=== PATIENT | male | born 1945 | race Caucasian/White ===

== ENCOUNTER 2018-11-04 09:13 | Emergency (ER) | payer OTHER ==
[2018-11-04 09:23] VITALS: BP 148/79
[2018-11-04] MEDS ORDERED: PROPARACAINE 0.5% OPHTH DROPS 15 ML EACHEYE STA (09:23)
--- NOTE | 2018-11-04 09:23 | ED Physician Documentation ---
PD HPI OPHTHO - Stated complaint Stated Complaint: EYE PX - Chief complaint Chief Complaint: Heent - History obtained from History obtained from: Patient - History of Present Illness Timing - onset: Today, Last night Timing - details: Abrupt onset, Still present Location: Both Quality / character: Burning, Aching Associated symptoms: Redness, Swelling, Tearing, Photophobia. No: Discharge, FB sensation, Decreased vision Contributing factors: Recent URI (some congestion and mild cough). No: Exposed to conjunctivitis, UV light (welding etc), Wears contacts Similar symptoms before: Has not had sx before Recently seen: Not recently seen Review of Systems Constitutional: denies: Fever, Chills Nose: reports: Rhinorrhea / runny nose, Congestion. denies: Sinus pressure / pain Throat: denies: Sore throat Respiratory: reports: Cough (mild) GI: denies: Nausea, Vomiting Neurologic: denies: Headache PD PAST MEDICAL HISTORY - Past Medical History Past Medical History: Yes Cardiovascular: Hypertension Respiratory: None Neuro: None Endocrine/Autoimmune: Type 2 diabetes - Present Medications Home Medications: Ambulatory Orders Medication Instructions Recorded Confirmed Glipizide [Glipizide ER] 5 mg PO 11/04/18 Lisinopril 11/04/18 Simvastatin 11/04/18 11/04/18 Sulfacetm Na/Prednisol AC 2 drops EACHEYE QID #5 ml 11/04/18 [Blephamide Eye Drops] metFORMIN [Glucophage] 11/04/18 - Allergies Allergies/Adverse Reactions: Allergies Allergy/AdvReac Type Severity Reaction Status Date / Time No Known Drug Allergies Allergy Verified 11/04/18 09:19 PD ED PE NORMAL - Vitals Vital signs reviewed: Yes - General General: Alert and oriented X 3, No acute distress, Well developed/nourished - HEENT HEENT: Ears normal, Pharynx benign - Neck Neck: Supple, no meningeal sign, No adenopathy - Cardiac Cardiac: RRR, No murmur - Respiratory Respiratory: Clear bilaterally - Derm Derm: Normal color, Warm and dry, No rash PD ED PE EXPANDED - Eyes Eyes: PERRL, EOMI, Both eyes, Injected conj/sclera, Anterior chambers clear, Normal fundi, Other (light sensitive, improved with Alcaine.). No: EOM palsy, Eyelid swelling, Exudate, Corneal FB, Fluorescein uptake Results - Vitals Vitals: Vital Signs - 24 hr 11/04/18 09:17 Temperature 37.1 C Heart Rate 61 Respiratory 16 Rate Blood Pressure 148/79 H O2 Saturation 99 Oxygen O2 Source Room air PD MEDICAL DECISION MAKING - ED course Complexity details: considered differential (No corneal defect. Has bilateral redness and discomfort. Consider viral or allergic. ), d/w patient Departure - Departure Disposition: 01 Home, Self Care Clinical Impression: Acute conjunctivitis, bilateral Qualifiers: Acute conjunctivitis type: unspecified Qualified Code(s): H10.33 - Unspecified acute conjunctivitis, bilateral Condition: Stable Record reviewed to determine appropriate education?: Yes Instructions: ED Conjunctivitis Nonspecific Prescriptions: Sulfacetm Na/Prednisol AC [Blephamide Eye Drops] 2 drops EACHEYE QID #5 ml Comments: Use the combination anti-inflammatory/antibiotic eyedrops 4 times a day for the next several days until fully better. This should improve over the next couple of days. It may be related to allergies or irritation and will be helped with the anti-inflammatory portion. It might be infectious. Sometimes this is viral and will take several days to clear but will cover with antibiotic in case. You can use the numbing eyedrops periodically if needed for discomfort for the first day or 2. Recheck if not well improved over the next couple of days. Tylenol or ibuprofen if needed as well for pain. Discharge Date/Time: 11/04/18 09:58
== END 2018-11-04 09:58 | disposition home or self-care (01) ==
LOC: ED 09:13
DX: H10.33 Unspecified acute conjunctivitis, bilateral (principal); I10 Essential (primary) hypertension; E11.9 Type 2 diabetes mellitus without complications; Z79.84 Long term (current) use of oral hypoglycemic drugs
CPT/HCPCS: 99283; J3490

== ENCOUNTER 2019-04-20 12:30 | Emergency (ER) | payer OTHER ==
--- NOTE | 2019-04-20 14:06 | XRAY Report ---
Reason: ankle inj Procedure Date: 04/20/2019 Accession Number: [id number] / [id number] Procedure: XR - Ankle 3 View LT CPT Code: FULL RESULT: EXAM: LEFT ANKLE RADIOGRAPHY EXAM DATE: 04/20/2019 01:47 PM. CLINICAL HISTORY: Ankle inj. Pain and swelling after dropping a transmission on his ankle 4 days ago. COMPARISON: None available. TECHNIQUE: 3 views. FINDINGS: Bones: There is a fracture through the distal fibula just above the level of the ankle joint. The distal fragment is displaced laterally approximately 1 mm and posteriorly approximately 2 mm. Joints: Normal. No effusion. No subluxations. The ankle mortise is normally aligned. Soft Tissues: There is soft tissue swelling laterally. IMPRESSION: Mildly displaced fracture of the distal fibula with adjacent soft tissue swelling. RADIA
--- NOTE | 2019-04-20 14:17 | ED Physician Documentation ---
History of Present Illness - Stated complaint Stated Complaint: LT ANKLE INJ - Chief complaint Chief Complaint: Heent - History obtained from History obtained from: Patient - History of Present Illness Timing: Other (5 days ago he was working at home and dropped a transmission on the medial side of his ankle and had persistent lateral ankle pain ever since but he is able to walk and bear weight. No other injuries.) Review of Systems Constitutional: reports: Reviewed and negative Cardiac: reports: Reviewed and negative Respiratory: reports: Reviewed and negative PD PAST MEDICAL HISTORY - Past Medical History Cardiovascular: Hypertension Respiratory: None Neuro: None Endocrine/Autoimmune: Type 2 diabetes - Past Surgical History Past Surgical History: Yes - Present Medications Home Medications: Ambulatory Orders Medication Instructions Recorded Confirmed Glipizide [Glipizide ER] 5 mg PO 11/04/18 Lisinopril 11/04/18 Simvastatin 11/04/18 11/04/18 Sulfacetm Na/Prednisol AC 2 drops EACHEYE QID #5 ml 11/04/18 [Blephamide Eye Drops] metFORMIN [Glucophage] 11/04/18 Knee Scooter 1 unit TD ONCE #1 04/20/19 - Allergies Allergies/Adverse Reactions: Allergies Allergy/AdvReac Type Severity Reaction Status Date / Time No Known Drug Allergies Allergy Verified 04/20/19 12:33 - Social History Does the pt smoke?: No Smoking Status: Never smoker Does the pt drink ETOH?: Yes Does the pt have substance abuse?: No - Immunizations Immunizations are current?: Yes PD ED PE NORMAL - Vitals Vital signs reviewed: Yes - General General: Alert and oriented X 3, No acute distress - Extremities Extremities: Other (Tender over the lateral malleolus of the left ankle without deformity. No foot or proximal fibular tenderness. No medial tenderness.) - Neuro Neuro: Alert and oriented X 3, Normal speech Results - Vitals Vitals: Vital Signs - 24 hr 04/20/19 12:33 Temperature 36.5 C Heart Rate 66 Respiratory 16 Rate Blood Pressure 117/88 H O2 Saturation 97 Oxygen O2 Source Room air - Rads (name of study) 3 views of the left ankle Radiology: EMP read contemporaneously (The displaced fracture of the left distal fibula with soft tissue swelling. No obvious mortise widening.) Procedures - Splint (location) LLE Splint applied by: Tech Type of splint: Fiberglass, Short leg, Posterior Other: Patient tolerated well, No complications, Neurovascular intact Departure - Departure Disposition: 01 Home, Self Care Clinical Impression: Displaced fracture of lateral malleolus of left fibula, initial encounter for closed fracture Condition: Good Record reviewed to determine appropriate education?: Yes Instructions: ED Fx Lower Ext Follow-Up: [facility] [Provider Group] - Within 1 week Prescriptions: Knee Scooter 1 unit TD ONCE #1 Comments: Keep the splint on and dry, do not remove it. Follow-up with the orthopedic surgeons within the week, call them on Tuesday. Return for new or worsening symptoms. Elevate the leg as much as possible.
[2019-04-20 14:50] VITALS: BP 157/78
== END 2019-04-20 14:48 | disposition home or self-care (01) ==
LOC: ED 12:30
DX: S82.62XA Displaced fracture of lateral malleolus of left fibula, initial encounter for closed fracture (principal); W20.8XXA Other cause of strike by thrown, projected or falling object, initial encounter; Y93.89 Activity, other specified; Y92.009 Unspecified place in unspecified non-institutional (private) residence as the place of occurrence of the external cause; I10 Essential (primary) hypertension; E11.9 Type 2 diabetes mellitus without complications; Z79.84 Long term (current) use of oral hypoglycemic drugs
CPT/HCPCS: 29515; 99283

== ENCOUNTER 2020-03-28 06:19 | Day surgery (SDC) | payer OTHER ==
[2020-03-28] MEDS ORDERED: LACTATED RINGERS 1,000 ML IV ONE ×2 (06:26→08:06)
[2020-03-28] MEDS ORDERED: fentaNYL 250 MCG/5 ML VIAL IVP ONE (07:21)
[2020-03-28] MEDS ORDERED: MIDAZOLAM 2 MG/2 ML VIAL IVP ONE (07:21)
[2020-03-28 08:26] VITALS: BP 102/61
== END 2020-03-28 06:20 | disposition home or self-care (01) ==
LOC: SDS 06:19
PROVIDERS: ATTEND Surgery
DX: Z12.11 Encounter for screening for malignant neoplasm of colon (principal); Z86.010 Personal history of colon polyps; K57.30 Diverticulosis of large intestine without perforation or abscess without bleeding; Z80.0 Family history of malignant neoplasm of digestive organs; I10 Essential (primary) hypertension; E11.9 Type 2 diabetes mellitus without complications; Z87.891 Personal history of nicotine dependence; Z79.84 Long term (current) use of oral hypoglycemic drugs
CPT/HCPCS: 45378; J3010; J7120

== ENCOUNTER 2022-02-22 20:05 | Emergency (ER) | payer OTHER ==
--- OUTSIDE RECORDS SUMMARY | 2022-02-22 20:39 | EXTERNAL MEDICAL SUMMARY RPT | Continuity of Care Document ---
:1945 Author Organization [facility] Address [address] [place] [address] Phone Allergies No information. Encounters No information. Functional Status No information. Immunizations No information. Medications date description facility [id number] oxycodone-acetaminophen [facility] [id number]+0000 lisinopril [facility] [phone]+0000 oxycodone-acetaminophen [facility] [id number]+0000 sulfamethoxazole-trimethoprim [facility] [phone]+0000 ibuprofen [facility] [phone]+0000 lisinopril [facility] [phone]+0000 metformin [facility] [phone]+0000 fluoride (sodium) [facility] [phone]+0000 atorvastatin [facility] [phone]+0000 atorvastatin [facility] [phone]+0000 ibuprofen [facility] [phone]+0000 sulfamethoxazole-trimethoprim [facility] [phone]+0000 metformin [facility] Problems No information. Procedures date description facility [id number] Visit Code Hold [facility] [phone] Visit Code Hold [facility] [phone]+0000 Visit Code Hold [facility] Results/Labs No information. Social History date description facility +0000 Former smoker [facility] Vital Signs date measurement value units +0000 BMI BMI 29.95 kg/m2 +0000 BP_diastolic BP_diastolic 84 mm[H g] +0000 BP_systolic BP_systolic 134 mm[Hg] [id number]+0000 heart_rate heart_rate 73 /min +0000 height_metric height_metric 176.53 cm +0000 height_standard height_standard 69.5 in +0000 respiration_rate respiration_rate 18 /min +0000 temperature_metric temperature_metric 36.94 C +0000 temperature_standard temperature_standard 9 8.5 F +0000 weight_metric weight_metric 92.99 kg +0000 weight_standard weight_standard 205 lb +0000 BMI BMI 27.61 kg/m2 +0000 BP_diastolic BP_diastolic 78 mm[H g] +0000 BP_systolic BP_systolic 136 mm[Hg] +0000 heart_rate heart_rate 67 /min +0000 height_metric height_metric 176.53 cm +0000 height_standard height_standard 69.5 in +0000 respiration_rate respiration_rate 16 /min +0000 temperature_metric temperature_metric 36.33 C +0000 temperature_standard temperature_standard 9 7.4 F +0000 weight_metric weight_metric 85.73 kg +0000 weight_standard weight_standard 189 lb [id number]+0000 BMI BMI 27.61 kg/m2 [id number]+0000 BP_diastolic BP_diastolic 69 mm[H g] [id number]+0000 BP_systolic BP_systolic 116 mm[Hg] 14439451847229+0000 heart_rate heart_rate 78 /min [id number]+0000 height_metric height_metric 176.53 cm +0000 height_standard height_standard 69.5 in [id number]+0000 respiration_rate respiration_rate 16 /min +0000 temperature_metric temperature_metric 36.17 C +0000 temperature_standard temperature_standard 9 7.1 F +0000 weight_metric weight_metric 85.73 kg +0000 weight_standard weight_standard 189 lb
--- NOTE | 2022-02-22 20:53 | ED Physician Documentation ---
History of Present Illness - Stated complaint Stated Complaint: LT LEG SWELLING - Chief complaint Chief Complaint: Ext Problem - History obtained from History obtained from: Patient, Family - History of Present Illness Timing: How many weeks ago (3) - Additonal information Additional information: 76-year-old male with history of uai-ilsjaps-xjnsmwmgy diabetes, hard of hearing with hearing aids presents for 3 weeks of left lower extremity pain and swelling. Patient states that he presented to urgent care for pain behind his knee, he was diagnosed with a pulled hamstring and discharged with rice instructions. Patient subsequently noticed redness and swelling over the distal part of his left lower extremity. He was diagnosed with cellulitis and discharg ed with antibiotics. Patient states that the leg has become more painful and does not seem to be getting better and so he was referred to the ER for evaluation of possible blood clot. Patient denies history of blood clots, recent surgeries or immobilizations. States that he has been slightly more sedentary at home since his hamstring has been bothering him. 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 Review of Systems Ten Systems: 10 systems reviewed and negative Constitutional: denies: Fever, Chills Ears: denies: Loss of hearing, Ear pain, Drainage/discharge Cardiac: denies: Chest pain / pressure, Palpitations GI: denies: Abdominal Pain, Abdominal Swelling : denies: Dysuria, Frequency Skin: reports: Rash (Erythema LLE). denies: Lesions, Abrasion (s), Laceration (s) Musculoskeletal: reports: Extremity swelling (LLE) PD PAST MEDICAL HISTORY - Past Medical History Past Medical History: Yes Cardiovascular: Hypertension, High cholesterol Respiratory: None Neuro: None Endocrine/Autoimmune: Type 2 diabetes GI: Other : None HEENT: None Musculoskeletal: None Derm: None - Past Surgical History Past Surgical History: Yes General: Colonoscopy - Present Medications Home Medications: Ambulatory Orders Medication Instructions Recorded Confirmed Glipizide [Glipizide ER] 10 mg PO DAILY 11/04/18 03/27/20 lisinopriL [Lisinopril] 20 mg PO DAILY 11/04/18 03/27/20 metFORMIN [Glucophage] 1,000 mg PO DAILY 11/04/18 03/27/20 Apixaban [Eliquis] 0 mg PO BID #30 tablet 02/22/22 Apixaban [Eliquis] 10 mg PO BID 7 Days #28 tablet 02/22/22 - Allergies Allergies/Adverse Reactions: Allergies Allergy/AdvReac Type Severity Reaction Status Date / Time No Known Drug Allergies Allergy Verified 02/22/22 20:12 - Social History Does the pt smoke?: No Smoking Status: Never smoker Does the pt drink ETOH?: Yes Does the pt have substance abuse?: No - Immunizations Immunizations are current?: Yes PD ED PE NORMAL - Vitals Vital signs reviewed: Yes - General General: Alert and oriented X 3, No acute distress, Well developed/nourished - HEENT HEENT: Atraumatic, PERRL, EOMI, Ears normal - Neck Neck: Supple, no meningeal sign, No bony TTP, C-Spine cleared by NEXUS criteria - Cardiac Cardiac: RRR, No gallop, No rub - Respiratory Respiratory: No respiratory distress, Clear bilaterally - Abdomen Abdomen: Soft, Non tender, Non distended - Back Back: No CVA TTP, No spinal TTP - Derm Derm: Warm and dry, Other (Blanching erythema LLE consistent with venous stasis) - Extremities Extremities: No tenderness to palpate, Normal ROM s pain, Other (1+ nonpitting edema LLE. 2+ DP pulses bilaterally, sensation equal bilaterally) - Neuro Neuro: Alert and oriented X 3, tree puller 2-12 intact, No motor deficit, No sensory deficit, Normal speech - Psych Psych: Normal mood, Normal affect Results - Vitals Vitals: Vital Signs - 24 hr 02/22/22 02/22/22 20:09 22:12 Temperature 36.3 C L Heart Rate 73 71 Respiratory 18 18 Rate Blood Pressure 111/61 112/61 O2 Saturation 97 98 Oxygen O2 Source Room air PD MEDICAL DECISION MAKING - ED course Complexity details: reviewed results, re-evaluated patient, considered differential, d/w patient, d/w family ED course: Patient with left lower extremity swelling for several weeks. Found to have DVT on ultrasound imaging. At this time patient does not have any contraindications to anticoagulation therapy. Will be started on Eliquis. Family and patient counseled on risks of starting blood thinners including risk for bleeding. Patient and his family given strict return precautions and counseled PCP follow-up soon as possible for further management of his DVT. 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 If you become injured or hit your head return immediately to the ER for evaluation. Take all medications as prescribed. Your dose will be 10 mg twice daily for 7 days followed by 5 mg twice daily until you can follow with your primary care physician. Discharge Date/Time: 02/22/22 22:45
[2022-02-22 22:15] VITALS: BP 112/61
--- NOTE | 2022-02-22 23:23 | Ultrasound Report ---
PROCEDURE: Duplex Ext Veins Left INDICATIONS: L LE swelling, pain TECHNIQUE: Real-time imaging, as well as color and pulse Doppler interrogation, were performed of the lower extr emity deep veins from the inguinal ligament to the popliteal fossa. COMPARISON: None. FINDINGS: The deep veins are normally compressible, and free of intraluminal thrombus. Color and pu lse Doppler demonstrate normal phasic intraluminal flow. There is normal augmentation response to di stal compression maneuver. IMPRESSION: No sonographic evidence of DVT. Reviewed by: Toribio Carbone MD on 02/22/2022 11:21 PM PDT Approved by: Toribio Carbone MD on 02/22/2022 11:21 PM PDT Station ID: [id number]
== END 2022-02-22 22:45 | disposition home or self-care (01) ==
LOC: ED 20:05
DX: I82.592 Chronic embolism and thrombosis of other specified deep vein of left lower extremity (principal)
CPT/HCPCS: 99284

== ENCOUNTER 2022-03-30 13:57 | Outpatient (CLI) | payer OTHER ==
[2022-03-30] MEDS ORDERED: DIATRIZOATE MEGLU/DIATRIZO SOD 30 ML BOTTLE PO ONE (14:18)
--- NOTE | 2022-03-30 17:41 | CT Report ---
PROCEDURE: Abdomen/Pelvis W INDICATIONS: LT LEG DVT, abdominal pain CONTRAST: IV CONTRAST: Optiray 320 ml: 100 PO CONTRAST: *NO PO CONTRAST TECHNIQUE: After the administration of contrast, 5 mm thick sections acquired from the diaphragms to the sym physis. 5 mm thick coronal and sagittal reformats were acquired. For radiation dose reduction, the following was used: automated exposure control, adjustment of mA and/or kV according to patient size . COMPARISON: None. FINDINGS: Image quality: Excellent. ABDOMEN: Lower thorax: The lung bases are clear. Heart size normal. No hiatal hernia. Liver: Liver shows diffusely decreased attenuation without focal mass lesion. Biliary system: No calcified cholelithiasis or pericholecystic inflammation. No evidence of bile du ct dilatation. Pancreas: Unremarkable without mass or inflammation evident. Spleen: Normal in size and density. Adrenals: Normal morphology and density. Reproductive system: Unremarkable as visualized. Urinary system: Normal renal size and attenuation. No renal calculi, hydronephrosis, or solid mass p resent. Urinary bladder unremarkable. Gastrointestinal system: The bowel appears unremarkable with no evidence of bowel obstruction or inf lammation. The stomach appears unremarkable. Diverticulosis without evidence of diverticulitis Appendix: No findings to suggest acute appendicitis. Peritoneal spaces: No mesenteric or retroperitoneal adenopathy. No free air. No free fluid. Vasculature: The IVC, aorta and iliac vasculature are unremarkable. Musculoskeletal: Normal bone mineralization. No acute fractures. Abdominal wall intact without shankar dence of ventral or inguinal hernias. Old healed left inferior pubic rami fracture. Multilevel degene rative disc disease and arthropathy lower lumbar spine IMPRESSION: No acute CT findings in the abdomen and pelvis. Reviewed by: Yan Abarca MD on 03/30/2022 4:40 PM AKMERLIN Approved by: Yan Abarca MD on 03/30/2022 4:40 PM AKDT Station ID: [id number]
== END 2022-03-30 13:58 | disposition home or self-care (01) ==
LOC: DI 13:57
PROVIDERS: ATTEND Internal Medicine
DX: I82.4Z2 Acute embolism and thrombosis of unspecified deep veins of left distal lower extremity (principal)
CPT/HCPCS: 74177; Q9967

== ENCOUNTER 2024-02-23 16:41 | Emergency (ER) | payer OTHER ==
[2024-02-23 16:50] VITALS: BP 135/73; O2SAT 99
[2024-02-23] MEDS: DEXAMETHASONE 10 MG/ML VIAL PO STA (17:19)
[2024-02-23] MEDS: CHERRY SYRUP 10 ML UDC PO ONE (17:20)
[2024-02-23] MEDS: CETIRIZINE 10 MG TABLET PO STA (17:20)
--- NOTE | 2024-03-05 16:38 | ED Physician Documentation ---
PD HPI SKIN - Stated complaint Stated Complaint: R ARM PX/SWELLING - Chief complaint Chief Complaint: Wound - Additional information Additional information: 78-year-old male with history of hypertension, high cholesterol, type 2 diabetes presents emergency department for right arm swelling. Patient says that he was guarding the other day and is unsure but thinks that he may have gotten bitten by a bug. There is erythema redness and swelling and is quite itchy to his forearm area. He has no shortness of breath no chest pain no recent fevers or chills able to flex and extend arm without any difficulty or pain. PD PAST MEDICAL HISTORY - Past Medical History Past Medical History: Yes Cardiovascular: Hypertension, High cholesterol Respiratory: None Neuro: None Endocrine/Autoimmune: Type 2 diabetes GI: Other : None HEENT: None Musculoskeletal: None Derm: None - Past Surgical History Past Surgical History: Yes General: Colonoscopy - Present Medications Home Medications: Ambulatory Orders Medication Instructions Recorded Confirmed Glipizide [Glipizide ER] 10 mg PO DAILY 11/04/18 03/27/20 lisinopriL [Lisinopril] 20 mg PO DAILY 11/04/18 03/27/20 metFORMIN [Glucophage] 1,000 mg PO DAILY 11/04/18 03/27/20 Apixaban [Eliquis] 0 mg PO BID #30 tablet 02/22/22 Apixaban [Eliquis] 10 mg PO BID 7 Days #28 tablet 02/22/22 - Allergies Allergies/Adverse Reactions: Allergies Allergy/AdvReac Type Severity Reaction Status Date / Time No Known Drug Allergies Allergy Verified 02/23/24 16:47 - Social History Does the pt smoke?: No Smoking Status: Never smoker Does the pt drink ETOH?: Yes Does the pt have substance abuse?: No - Immunizations Immunizations are current?: Yes PD ED PE NORMAL - Vitals Vital signs reviewed: Yes - General General: Alert and oriented X 3, No acute distress, Well developed/nourished - Derm Derm: No rash (right forearm erythema, no fluctuance,no vesicles), Other - Psych Psych: Normal mood, Normal affect Results - Vitals Vitals: Oxygen O2 Source Room air PD Medical Decision Making - ED course ED course: 78-year-old male presents emergency department for right forearm erythema. Patient was bit by a bug a couple days ago and he says it is quite itchy. He does not appear to have any anaphylaxis there is no fluctuance no obvious signs of abscess or infection. It appears to be inflammation and erythema from a bug bite. He was told to start taking Zyrtec daily and was told to apply some ice to this area to help with itching as well as some topical Benadryl cream. He was also given some steroids here to help with inflammation and swelling. He was given return precautions no further intervention or workup indicated at this time. Patient is safe for discharge told to follow-up with primary care provider as needed. Departure - Departure Disposition: Home, Self Care Clinical Impression: Bug bite with infection Qualifiers: Encounter type: initial encounter Qualified Code(s): W57.XXXA - Bitten or stung by nonvenomous insect and other nonvenomous arthropods, initial encounter Instructions: Bites Stings Insect Comments: As we discussed I do not believe that your bug bite is infected. You can apply an Steve wrap of your arm to help with compression although if this makes it more itchy I would take it off. Can apply ice and take Zyrtec daily until the inflammation swelling goes down. Please come back and if you start to notice any fevers or chills or pain to that area. Forms: PCP List Discharge Date/Time: 02/23/24 17:25
== END 2024-02-23 17:25 | disposition home or self-care (01) ==
LOC: ED 16:41
DX: S50.861A Insect bite (nonvenomous) of right forearm, initial encounter (principal); W57.XXXA Bitten or stung by nonvenomous insect and other nonvenomous arthropods, initial encounter; I10 Essential (primary) hypertension; E78.00 Pure hypercholesterolemia, unspecified; E11.9 Type 2 diabetes mellitus without complications; Z79.84 Long term (current) use of oral hypoglycemic drugs; Z79.01 Long term (current) use of anticoagulants; Z79.899 Other long term (current) drug therapy
CPT/HCPCS: 99283; A9270

== ENCOUNTER 2024-03-10 18:45 | Outpatient (CLI) | payer OTHER | END 2024-03-10 18:46 | disposition EMS.NT | LOC: EMS 18:45 | DX: S81.812A Laceration without foreign body, left lower leg, initial encounter (principal); W25.XXXA Contact with sharp glass, initial encounter; Y93.E9 Activity, other interior property and clothing maintenance; Y92.009 Unspecified place in unspecified non-institutional (private) residence as the place of occurrence of the external cause ==